=== PATIENT | female | born 1950 | race Caucasian/White ===

== ENCOUNTER → 2016-11-23 | Outpatient (CLI) | payer MEDICARE, MEDICAID ==
[2016-11-23 12:51] LABS: HEMOGLOBIN 14.3 g/dL (11.7-16.4)
[2016-11-23 13:09] LABS: ASPARTATE AMINO TRANSFERASE 11 U/L (15-37); BLOOD UREA NITROGEN 11 mg/dL (7-18)
== END | disposition home or self-care (01) ==
LOC: CFH 11:02
PROVIDERS: ATTEND Nurse Practitioner Family
DX: C54.9 Malignant neoplasm of corpus uteri, unspecified (principal)
CPT/HCPCS: 36415; 80053; 85025

== ENCOUNTER 2018-09-30 08:00 | Outpatient (CLI) | payer MEDICARE, MEDICAID ==
[~2018-09-30 08:00] MED LIST: REGADENOSON 0.4 MG/5 ML SYRINGE ONE
== END 2018-09-30 23:59 | disposition home or self-care (01) ==
LOC: CFH 08:00
PROVIDERS: ATTEND Internal Medicine Cardiovascular Disease
DX: I51.7 Cardiomegaly (principal); I35.8 Other nonrheumatic aortic valve disorders; I49.3 Ventricular premature depolarization
CPT/HCPCS: 78452; 93017; 93306; A9502; J2785

== ENCOUNTER 2018-11-01 13:02 | Inpatient (IN) | payer MEDICARE, MEDICAID ==
[~2018-11-01] VITALS: Ht 147.3 cm; Wt 106.3 kg
--- NOTE | 2018-11-01 13:21 | NUR ---
LUNCH RN: PELON PANG FROM HOME FOR INCREASING ABD PAIN WHICH STARTED LAST NIGHT. PT STATES HAS HAD UMBILICAL HERNIA FOR YEARS BUT LAST NIGHT FELT URGE TO HAVE A BM WAS UNABLE TO, THEN HERNIA BECAME INLARGED AND HARD. VOMITTING X1. IV IN PLACE ON ARRIVAL, 200ML NS, 100 FENT AND 4 ZOFRAN GIVEN IN ROUTE BRINGING PT PAIN DOWN TO 2/10. CONNECTED TO MONITORING, HTN (HASNT TAKEN MORNING MEDS YET), SUP O2 NEEDED TO KEEP SATS WNL AFTER PAIN MEDS. MD TO BEDSIDE FOR ASSESSMENT, REDUCED HERNIA PARTLY. AWAITING ORDERS AT THIS TIME. CALL LIGHT WITHIN REACH
[2018-11-01] MEDS ORDERED: SODIUM CHLORIDE FLUSH 10ML SYR IVF ONE (13:30)
[2018-11-01 13:42] LABS: BASOPHILS # (AUTO) 0.08 x10^3/uL (0-0.1); BASOPHILS % (AUTO) 1 % (0-1); EOSINOPHILS # (AUTO) 0.04 x10^3/uL (0-0.4); EOSINOPHILS % (AUTO) 0 % (1-7); LYMPHOCYTES # (AUTO) 1.19 x10^3/uL (1-3.4); LYMPHOCYTES % (AUTO) 11 % (22-44); MD NO; MEAN CORPUSCULAR HEMOGLOBIN 28.8 pg (27.0-34.8); MEAN CORPUSCULAR HGB CONC 33.7 g/dL (32.4-35.8); MEAN CORPUSCULAR VOLUME 85.4 fL (80-100); MEAN PLATELET VOLUME 8.8 fL (7.4-10.4); MONOCYTES # (AUTO) 0.33 x10^3/uL (0.2-0.8); MONOCYTES % (AUTO) 3 % (2-9); NEUTROPHILS % (AUTO) 84 % (42-75); PLATELET COUNT 368 x10^3/uL (130-400); RED BLOOD COUNT 5.29 x10^6/uL (3.82-5.3)
[2018-11-01 13:52] LABS: ALANINE AMINOTRANSFERASE 13 U/L (12-78); ALBUMIN 3.2 g/dL (3.4-5.0); ANION GAP 3 mmol/L (5-15); CALCIUM 8.2 mg/dL (8.5-10.1); CHLORIDE 105 mmol/L (98-107)
[2018-11-01 13:55] LABS: ALKALINE PHOSPHATASE 65 U/L (45-117); BILIRUBIN,TOTAL 0.4 mg/dL (0.2-1.0); TOTAL PROTEIN 7.7 g/dL (6.4-8.2)
--- NOTE | 2018-11-01 13:56 | NUR ---
CT PENDING: LABS PENDING
[2018-11-01 14:10] LABS: MICROSCOPIC NOT IND
[2018-11-01 14:26] LABS: CULTURE INDICATED? NO
[2018-11-01] MEDS ORDERED: OMNIPAQUE 350 MG/ML, 100ML BOTTLE ONE (14:30)
[2018-11-01] MEDS ORDERED: CA C1TAB42 PO (15:05)
[2018-11-01] MEDS ORDERED: LOVA10TA PO (15:05)
[2018-11-01] MEDS ORDERED: LISI40TA PO (15:05)
[2018-11-01] MEDS ORDERED: METF500T17 PO (15:05)
[2018-11-01] MEDS ORDERED: CHOL500015 PO (15:05)
[2018-11-01] MEDS ORDERED: MAGN400T36 PO (15:05)
[2018-11-01] MEDS ORDERED: ASPI-496 PO (15:05)
[2018-11-01] MEDS ORDERED: DEXTROSE 50%, 50ML SYRINGE IVPush PRN (17:30)
[2018-11-01] MEDS ORDERED: ENALAPRILAT 1.25 MG/ML, 2ML IVPush PRN (17:30)
[2018-11-01] MEDS ORDERED: GLUCAGON 1 MG IM PRN (17:30)
[2018-11-01] MEDS ORDERED: hydrALAzine 20 MG/ML, 1ML IVPush PRN (17:30)
[2018-11-01] MEDS ORDERED: morphine SULFATE 10 MG/ML, 1ML IVPush PRN (17:30)
[2018-11-01] MEDS ORDERED: ACETAMINOPHEN 325 MG TABLET PO PRN (17:30)
[2018-11-01] MEDS ORDERED: PROCHLORPERAZINE 5 MG TABLET PO PRN (17:30)
[2018-11-01] MEDS ORDERED: DEXTROSE 4 GM TAB.CHEW PO PRN (17:30)
[2018-11-01] MEDS ORDERED: HEPARIN 5,000 UNITS/ML, 1ML ONE (17:34)
--- NOTE | 2018-11-01 17:38 | NUR ---
assumed care of pt . meds started and ns started.
[2018-11-01] MEDS: HEPARIN 5,000 UNITS/ML, 1ML SQ SCH (17:42)
[2018-11-01] MEDS: SODIUM CHLORIDE 0.9% 1,000 ML IV SCH (17:51)
[2018-11-01 17:54] LABS: HEMOGLOBIN A1C 9.5 % (4.2-6.3)
[2018-11-01 17:55] LABS: FREE T4 (FREE THYROXINE) 0.85 ng/dL (0.76-1.46); THYROID STIMULATING HORMONE 8.31 mIU/L (0.358-3.740)
--- NOTE | 2018-11-01 17:55 | NUR ---
pt given crackers and diet 7-up.
--- NOTE | 2018-11-01 18:03 | NUR ---
Provided report to LUCIA Hwang. All questions answered. Pt ready to transfer to floor from ED.
[2018-11-01 18:50] VITALS: BP 126/65
[2018-11-01] MEDS ORDERED: levothyroxine (19:04)
[2018-11-01] MEDS: SODIUM CHLORIDE FLUSH 10ML SYR IVF SCH (20:25)
[2018-11-01] MEDS: LOVASTATIN 10 MG TABLET PO SCH (20:25)
[2018-11-01] MEDS: INSULIN LISPRO 100 UNITS/ML, PEN SQ-INSULIN SCH (20:30)
[2018-11-01 20:31] LABS: ALBUMIN 2.9 g/dL (3.4-5.0); ANION GAP 6 mmol/L (5-15); CALCIUM 8.4 mg/dL (8.5-10.1); CHLORIDE 106 mmol/L (98-107); CREATININE 0.87 mg/dL (0.55-1.02)
[2018-11-02 00:10] VITALS: BP 120/56
[2018-11-02] MEDS: SODIUM CHLORIDE 0.9% 1,000 ML IV SCH (00:32)
[2018-11-02] MEDS: GABAPENTIN 300 MG CAPSULE PO PRN ×2 (00:32→23:43)
[2018-11-02] MEDS: HEPARIN 5,000 UNITS/ML, 1ML SQ SCH ×4 (00:33→23:59)
[2018-11-02 05:04] LABS: BASOPHILS # (AUTO) 0.05 x10^3/uL (0-0.1); BASOPHILS % (AUTO) 0 % (0-1); EOSINOPHILS # (AUTO) 0.19 x10^3/uL (0-0.4); EOSINOPHILS % (AUTO) 2 % (1-7); LYMPHOCYTES # (AUTO) 2.79 x10^3/uL (1-3.4); LYMPHOCYTES % (AUTO) 25 % (22-44); MD NO; MEAN CORPUSCULAR HEMOGLOBIN 28.5 pg (27.0-34.8); MEAN CORPUSCULAR HGB CONC 33.1 g/dL (32.4-35.8); MEAN CORPUSCULAR VOLUME 86.2 fL (80-100); MEAN PLATELET VOLUME 9.1 fL (7.4-10.4); MONOCYTES # (AUTO) 0.92 x10^3/uL (0.2-0.8); MONOCYTES % (AUTO) 8 % (2-9); NEUTROPHILS # (AUTO) 7.05 x10^3/uL (1.8-6.8); NEUTROPHILS % (AUTO) 64 % (42-75); PLATELET COUNT 356 x10^3/uL (130-400); RED BLOOD COUNT 4.99 x10^6/uL (3.82-5.3); RED CELL DISTRIBUTION WIDTH 15.4 % (9.6-15.2)
[2018-11-02 05:12] LABS: ALANINE AMINOTRANSFERASE 13 U/L (12-78); ALBUMIN 2.9 g/dL (3.4-5.0); ANION GAP 6 mmol/L (5-15); CALCIUM 8.4 mg/dL (8.5-10.1); CHLORIDE 103 mmol/L (98-107)
[2018-11-02 05:16] LABS: ALKALINE PHOSPHATASE 57 U/L (45-117); BILIRUBIN,TOTAL 0.3 mg/dL (0.2-1.0); CHOL/HDL RATIO 4.4; CHOLESTEROL, TOTAL 182 mg/dL (140-239); HDL CHOL % 23 % (28-40); HDL CHOLESTEROL (DIRECT) 41 mg/dL (40-60); LDL CHOLESTEROL,CALCULATED 75 mg/dL (54-169); LDL/HDL RATIO 1.8 (0.5-3.0); TOTAL PROTEIN 7.2 g/dL (6.4-8.2); TRIGLYCERIDES 330 mg/dL (50-200); VLDL CHOLESTEROL 66 mg/dL (0-25)
[2018-11-02 06:47] VITALS: BP 128/72
[2018-11-02] MEDS: INSULIN LISPRO 100 UNITS/ML, PEN SQ-INSULIN SCH ×4 (08:29→20:02)
[2018-11-02] MEDS: SODIUM CHLORIDE FLUSH 10ML SYR IVF SCH ×2 (09:00→19:55)
[2018-11-02] MEDS: CHOLECALCIFEROL 1,000 UNIT TABLET PO SCH (09:37)
[2018-11-02] MEDS: LISINOPRIL 20 MG TABLET PO SCH (09:37)
[2018-11-02] MEDS: ASPIRIN 81 MG TABLET EC PO SCH (09:38)
[2018-11-02 12:50] VITALS: BP 116/73
[2018-11-02] MEDS ORDERED: SODIUM CHLORIDE 0.9% 1,000 ML IV SCH (17:19)
[2018-11-02 19:35] VITALS: BP 102/60
[2018-11-02] MEDS: LOVASTATIN 10 MG TABLET PO SCH (19:55)
[2018-11-02] MEDS ORDERED: INSULIN GLARGINE 100 UNITS/ML, PEN SQ-INSULIN SCH (21:00)
[2018-11-03 01:18] VITALS: BP 101/59
[2018-11-03] MEDS: GABAPENTIN 300 MG CAPSULE PO PRN (05:00)
[2018-11-03 05:03] LABS: BASOPHILS # (AUTO) 0.05 x10^3/uL (0-0.1); BASOPHILS % (AUTO) 1 % (0-1); EOSINOPHILS # (AUTO) 0.46 x10^3/uL (0-0.4); EOSINOPHILS % (AUTO) 5 % (1-7); LYMPHOCYTES # (AUTO) 3.11 x10^3/uL (1-3.4); LYMPHOCYTES % (AUTO) 32 % (22-44); MD NO; MEAN CORPUSCULAR HEMOGLOBIN 28.6 pg (27.0-34.8); MEAN CORPUSCULAR HGB CONC 33.6 g/dL (32.4-35.8); MEAN CORPUSCULAR VOLUME 85.1 fL (80-100); MONOCYTES # (AUTO) 0.89 x10^3/uL (0.2-0.8); MONOCYTES % (AUTO) 9 % (2-9); NEUTROPHILS # (AUTO) 5.15 x10^3/uL (1.8-6.8); NEUTROPHILS % (AUTO) 53 % (42-75); PLATELET COUNT 332 x10^3/uL (130-400); RED BLOOD COUNT 4.82 x10^6/uL (3.82-5.3); RED CELL DISTRIBUTION WIDTH 15.1 % (9.6-15.2)
[2018-11-03 05:10] LABS: ALBUMIN 2.9 g/dL (3.4-5.0); ANION GAP 6 mmol/L (5-15); CALCIUM 8.1 mg/dL (8.5-10.1); CHLORIDE 104 mmol/L (98-107); CREATININE 0.67 mg/dL (0.55-1.02)
[2018-11-03 06:31] VITALS: BP 123/70
[2018-11-03] MEDS: CHOLECALCIFEROL 1,000 UNIT TABLET PO SCH (07:43)
[2018-11-03] MEDS: INSULIN LISPRO 100 UNITS/ML, PEN SQ-INSULIN SCH (07:43)
[2018-11-03] MEDS: ASPIRIN 81 MG TABLET EC PO SCH (07:43)
[2018-11-03] MEDS: LISINOPRIL 20 MG TABLET PO SCH (07:44)
[2018-11-03] MEDS: SODIUM CHLORIDE FLUSH 10ML SYR IVF SCH (07:44)
[2018-11-03] MEDS ORDERED: INSU100I13 SQ-INSULIN (08:59)
[2018-11-03] MEDS ORDERED: INSU100I11 SQ-INSULIN (08:59)
[2018-11-03] MEDS ORDERED: GABA300C10 PO (08:59)
[2018-11-03] MEDS: HEPARIN 5,000 UNITS/ML, 1ML SQ SCH (09:30)
== END 2018-11-03 11:35 | disposition home health service (06) | DRG 394 ==
LOC: ED 14:23 → EDIP 16:40 → 3NW 18:03 → DCLOUNGE 11-03 11:09
PROVIDERS: ADMIT Internal Medicine; ATTEND Internal Medicine
PROC: 0T9B70Z Drainage of Bladder with Drainage Device, Via Natural or Artificial Opening (ICD-10-PCS; principal; 2018-11-01)
DX: K42.9 Umbilical hernia without obstruction or gangrene (principal); E46 Unspecified protein-calorie malnutrition; Z68.42 Body mass index [BMI] 45.0-49.9, adult; I69.351 Hemiplegia and hemiparesis following cerebral infarction affecting right dominant side; R29.6 Repeated falls; E11.65 Type 2 diabetes mellitus with hyperglycemia; E78.5 Hyperlipidemia, unspecified; I10 Essential (primary) hypertension; D64.9 Anemia, unspecified; I67.1 Cerebral aneurysm, nonruptured; K43.2 Incisional hernia without obstruction or gangrene; R62.7 Adult failure to thrive; Z82.3 Family history of stroke; Z79.82 Long term (current) use of aspirin; Z79.899 Other long term (current) drug therapy; Z90.710 Acquired absence of both cervix and uterus; Z85.42 Personal history of malignant neoplasm of other parts of uterus; Z87.891 Personal history of nicotine dependence
CPT/HCPCS: 36415; 71045; 74177; 80048; 80053; 80061; 81003; 82040; 82962; 83036; 83690; 83735; 84100; 84439; 84443; 85025; 99285; G0378; J1644; Q9967; J1815; J7030

== ENCOUNTER → 2019-01-10 | Outpatient (CLI) | payer MEDICARE, MEDICAID ==
[~2019-01-10] MED LIST changes: +ASPI-496 PO; +CA C1TAB42 PO; +CHOL500015 PO; +GABA300C10 PO; +INSU100I11 SQ-INSULIN; +INSU100I13 SQ-INSULIN; +LISI40TA PO; +LOVA10TA PO; +MAGN400T36 PO; +METF500T17 PO; +OMNIPAQUE 350 MG/ML, 100ML BOTTLE ONE; -REGADENOSON 0.4 MG/5 ML SYRINGE ONE; +levothyroxine
== END | disposition home or self-care (01) ==
LOC: CFH 09:00
PROVIDERS: ATTEND Nurse Practitioner Family
DX: I65.23 Occlusion and stenosis of bilateral carotid arteries (principal)
CPT/HCPCS: 70496; 70498; 82565; Q9967

== ENCOUNTER 2021-01-30 07:55 | Day surgery (SDC) | payer MEDICARE, MEDICAID ==
[~2021-01-30] VITALS: Ht 147.3 cm; Wt 106.0 kg
[~2021-01-30 07:55] MED LIST changes: +ASPI325T17 PO; +ATOR-2 PO; +CLOP75TA PO; +HYDR-3237 PO; +LEVO25TA2 PO; -LISI40TA PO; +LISI40TA9 PO; +METF500T PO; -OMNIPAQUE 350 MG/ML, 100ML BOTTLE ONE; +ROPI1TAB4 PO; +UBID100C41 PO
[2021-01-30] MEDS ORDERED: ZINC220C4 PEG (09:03)
[2021-01-30] MEDS ORDERED: CALC-73 PO (09:03)
[2021-01-30] MEDS ORDERED: ROPI3TAB4 PO (09:03)
[2021-01-30] MEDS ORDERED: MAGN64TA7 PO (09:03)
[2021-01-30] MEDS ORDERED: GLIP5TAB10 PO (09:03)
[2021-01-30] MEDS ORDERED: UBID30CA15 PO (09:03)
[2021-01-30] MEDS ORDERED: LISI40TA9 PO (09:03)
[2021-01-30] MEDS ORDERED: METF850T10 PO (09:03)
[2021-01-30] MEDS ORDERED: ERGO1250 PO (09:03)
[2021-01-30] MEDS ORDERED: ASPI325T17 PO (09:03)
[2021-01-30] MEDS ORDERED: LOVA10TA PO (09:03)
[2021-01-30] MEDS ORDERED: LEVO50TA5 PO (09:03)
[2021-01-30] MEDS ORDERED: HYDR25TA6 PO (09:03)
[2021-01-30] MEDS ORDERED: POTA8CAP20 PO (09:03)
[2021-01-30] MEDS ORDERED: METO50TA82 PO (09:03)
[2021-01-30] MEDS ORDERED: VITA1TAB3 PO (09:03)
[2021-01-30 09:05] VITALS: BP 174/98
[2021-01-30] MEDS ORDERED: LACTATED RINGERS 1,000 ML IV SCH (09:30)
[2021-01-30] MEDS ORDERED: CHLORHEXIDINE 15 ML UDC PO ONE (09:30)
[2021-01-30] MEDS ORDERED: PROPOFOL 50 ML ONE (09:35)
[2021-01-30 09:36] LABS: ALANINE AMINOTRANSFERASE 14 U/L (12-78); ALBUMIN 3.2 g/dL (3.4-5.0); ANION GAP 8 mmol/L (5-15); CALCIUM 8.8 mg/dL (8.5-10.1); CHLORIDE 105 mmol/L (98-107)
[2021-01-30 09:39] LABS: ALKALINE PHOSPHATASE 63 U/L (45-117); BILIRUBIN,TOTAL 0.7 mg/dL (0.2-1.0); CREATININE 0.68 mg/dL (0.55-1.02); TOTAL PROTEIN 8.1 g/dL (6.4-8.2)
[2021-01-30] MEDS ORDERED: hydrALAzine 20 MG/ML, 1ML IV PRN (10:30)
[2021-01-30] MEDS ORDERED: OXYcodone 5 MG/5 ML ORAL.SOL UDC PO PRN (10:30)
[2021-01-30] MEDS ORDERED: FENTANYL PF 100 MCG/2ML IV PRN (10:30)
[2021-01-30] MEDS ORDERED: ONDANSETRON 2MG/ML, 2ML IVPush PRN (10:30)
[2021-01-30] MEDS ORDERED: LABETALOL 5MG/ML, 20ML IV PRN (10:30)
[2021-01-30] MEDS ORDERED: ACETAMINOPHEN 325 MG TABLET PO PRN (10:30)
[2021-01-30] MEDS ORDERED: MEPERIDINE/PF 25MG/0.5ML IVPush PRN (10:30)
[2021-01-30] MEDS ORDERED: GLYCOPYRROLATE 0.2MG/1ML, 5ML ONE (10:37)
== END 2021-01-30 15:30 | disposition home or self-care (01) ==
LOC: OUT 07:55
PROVIDERS: ATTEND Internal Medicine Gastroenterology
DX: Z12.11 Encounter for screening for malignant neoplasm of colon (principal); K64.8 Other hemorrhoids; I10 Essential (primary) hypertension; E11.9 Type 2 diabetes mellitus without complications; E78.5 Hyperlipidemia, unspecified; G47.33 Obstructive sleep apnea (adult) (pediatric); E03.9 Hypothyroidism, unspecified; K21.9 Gastro-esophageal reflux disease without esophagitis; I69.351 Hemiplegia and hemiparesis following cerebral infarction affecting right dominant side; E66.01 Morbid (severe) obesity due to excess calories; Z20.822 Contact with and (suspected) exposure to COVID-19; Z68.42 Body mass index [BMI] 45.0-49.9, adult; Z79.84 Long term (current) use of oral hypoglycemic drugs; Z79.890 Hormone replacement therapy; Z79.899 Other long term (current) drug therapy; Z87.891 Personal history of nicotine dependence; Z83.71 Family history of colonic polyps
CPT/HCPCS: 74280; 80053; 82962; 87635; 93005; G0104; J2704; J7120

== ENCOUNTER 2021-03-26 18:36 | Emergency (ER) | payer MEDICARE, MEDICAID ==
[~2021-03-26] VITALS: Ht 147.3 cm; Wt 111.4 kg
[~2021-03-26 18:36] MED LIST changes: +CALC-73 PO; +ERGO1250 PO; +GLIP5TAB10 PO; +HYDR25TA6 PO; +LEVO50TA5 PO; +MAGN64TA7 PO; +METF850T10 PO; +METO50TA82 PO; +POTA8CAP20 PO; +ROPI3TAB4 PO; +UBID30CA15 PO; +VITA1TAB3 PO; +ZINC220C4 PEG
[2021-03-26 19:27] LABS: BASOPHILS % (AUTO) 2 % (0-1); EOSINOPHILS % (AUTO) 1 % (1-7); LYMPHOCYTES % (AUTO) 14 % (22-44); MEAN CORPUSCULAR HEMOGLOBIN 27.3 pg (27.0-34.8); MEAN CORPUSCULAR HGB CONC 32.3 g/dL (32.4-35.8); MEAN PLATELET VOLUME 8.2 fL (7.4-10.4); MONOCYTES % (AUTO) 9 % (2-9); NEUTROPHILS % (AUTO) 74 % (42-75); PLATELET COUNT 384 x10^3/uL (130-400); RED BLOOD COUNT 5.26 x10^6/uL (3.82-5.3); RED CELL DISTRIBUTION WIDTH 18.2 % (9.6-15.2)
[2021-03-26 19:38] LABS: ALANINE AMINOTRANSFERASE 13 U/L (12-78); ALBUMIN 2.9 g/dL (3.4-5.0); ANION GAP 10 mmol/L (5-15); CALCIUM 9.1 mg/dL (8.5-10.1); CHLORIDE 103 mmol/L (98-107); CREATININE 0.67 mg/dL (0.55-1.02)
--- NOTE | 2021-03-26 19:40 | NUR ---
PER OPERATIVE SUPERVISOR, PT TO U/S AT THIS TIME.
[2021-03-26 19:41] LABS: ALKALINE PHOSPHATASE 54 U/L (45-117); BILIRUBIN,TOTAL 0.7 mg/dL (0.2-1.0); TOTAL PROTEIN 7.6 g/dL (6.4-8.2)
--- NOTE | 2021-03-26 22:27 | NUR ---
PT WHEELED TO ROOM C FAMILY ATT.
[2021-03-26] MEDS ORDERED: CEPHALEXIN 500 MG CAPSULE PO ONE (23:00)
[2021-03-26] MEDS ORDERED: HYDROCORTISONE CRM 2.5%, 20GM TP ONE (23:00)
[2021-03-26] MEDS ORDERED: CEPHALEXIN 500 MG CAPSULE ONE (23:09)
[2021-03-26 23:30] VITALS: BP 163/72
== END 2021-03-27 00:09 | disposition home or self-care (01) ==
LOC: ED 23:00
DX: L25.9 Unspecified contact dermatitis, unspecified cause (principal); L03.115 Cellulitis of right lower limb; I10 Essential (primary) hypertension; E11.9 Type 2 diabetes mellitus without complications; Z86.73 Personal history of transient ischemic attack (TIA), and cerebral infarction without residual deficits; Z90.710 Acquired absence of both cervix and uterus; Z87.891 Personal history of nicotine dependence
CPT/HCPCS: 36415; 80053; 85025; 99284

== ENCOUNTER 2021-04-21 14:03 | Outpatient (CLI) | payer MEDICARE, MEDICAID | END 2021-04-21 23:59 | disposition home or self-care (01) | LOC: WOUND 14:03 | PROVIDERS: ATTEND Internal Medicine | DX: E11.622 Type 2 diabetes mellitus with other skin ulcer (principal); I87.313 Chronic venous hypertension (idiopathic) with ulcer of bilateral lower extremity; L97.811 Non-pressure chronic ulcer of other part of right lower leg limited to breakdown of skin; L97.222 Non-pressure chronic ulcer of left calf with fat layer exposed; I89.0 Lymphedema, not elsewhere classified; L84 Corns and callosities; E78.5 Hyperlipidemia, unspecified; E11.40 Type 2 diabetes mellitus with diabetic neuropathy, unspecified; E03.9 Hypothyroidism, unspecified; E66.01 Morbid (severe) obesity due to excess calories; Z68.42 Body mass index [BMI] 45.0-49.9, adult; Z86.73 Personal history of transient ischemic attack (TIA), and cerebral infarction without residual deficits; Z85.42 Personal history of malignant neoplasm of other parts of uterus; Z90.710 Acquired absence of both cervix and uterus; Z87.891 Personal history of nicotine dependence | CPT/HCPCS: 97597 ==

== ENCOUNTER 2021-05-06 14:11 | Outpatient (CLI) | payer MEDICARE, MEDICAID | END 2021-05-06 23:59 | disposition home or self-care (01) | LOC: WOUND 14:11 | PROVIDERS: ATTEND Internal Medicine | DX: E11.622 Type 2 diabetes mellitus with other skin ulcer (principal); I87.313 Chronic venous hypertension (idiopathic) with ulcer of bilateral lower extremity; L97.811 Non-pressure chronic ulcer of other part of right lower leg limited to breakdown of skin; L97.222 Non-pressure chronic ulcer of left calf with fat layer exposed; I89.0 Lymphedema, not elsewhere classified; L84 Corns and callosities; E78.5 Hyperlipidemia, unspecified; E11.40 Type 2 diabetes mellitus with diabetic neuropathy, unspecified; E03.9 Hypothyroidism, unspecified; E66.01 Morbid (severe) obesity due to excess calories; Z68.42 Body mass index [BMI] 45.0-49.9, adult; Z86.73 Personal history of transient ischemic attack (TIA), and cerebral infarction without residual deficits; Z85.42 Personal history of malignant neoplasm of other parts of uterus; Z90.710 Acquired absence of both cervix and uterus; Z87.891 Personal history of nicotine dependence | CPT/HCPCS: 97597 ==

== ENCOUNTER → 2021-05-13 | Outpatient (CLI) | payer MEDICARE, MEDICAID | END | disposition home or self-care (01) | LOC: WOUND 13:42 | PROVIDERS: ATTEND Nurse Practitioner Family | DX: E11.622 Type 2 diabetes mellitus with other skin ulcer (principal); I87.313 Chronic venous hypertension (idiopathic) with ulcer of bilateral lower extremity; L97.811 Non-pressure chronic ulcer of other part of right lower leg limited to breakdown of skin; L97.222 Non-pressure chronic ulcer of left calf with fat layer exposed; I89.0 Lymphedema, not elsewhere classified; L84 Corns and callosities; E78.5 Hyperlipidemia, unspecified; E11.40 Type 2 diabetes mellitus with diabetic neuropathy, unspecified; E03.9 Hypothyroidism, unspecified; E66.01 Morbid (severe) obesity due to excess calories; Z68.42 Body mass index [BMI] 45.0-49.9, adult; Z86.73 Personal history of transient ischemic attack (TIA), and cerebral infarction without residual deficits; Z85.42 Personal history of malignant neoplasm of other parts of uterus; Z90.710 Acquired absence of both cervix and uterus; Z87.891 Personal history of nicotine dependence | CPT/HCPCS: 97597 ==

== ENCOUNTER → 2021-05-20 | Outpatient (CLI) | payer MEDICARE, MEDICAID | END | disposition home or self-care (01) | LOC: WOUND 14:49 | PROVIDERS: ATTEND Nurse Practitioner Family | DX: E11.622 Type 2 diabetes mellitus with other skin ulcer (principal); I87.313 Chronic venous hypertension (idiopathic) with ulcer of bilateral lower extremity; L97.811 Non-pressure chronic ulcer of other part of right lower leg limited to breakdown of skin; L97.222 Non-pressure chronic ulcer of left calf with fat layer exposed; I89.0 Lymphedema, not elsewhere classified; L84 Corns and callosities; E78.5 Hyperlipidemia, unspecified; E11.40 Type 2 diabetes mellitus with diabetic neuropathy, unspecified; E03.9 Hypothyroidism, unspecified; E66.01 Morbid (severe) obesity due to excess calories; Z68.42 Body mass index [BMI] 45.0-49.9, adult; Z86.73 Personal history of transient ischemic attack (TIA), and cerebral infarction without residual deficits; Z85.42 Personal history of malignant neoplasm of other parts of uterus; Z90.710 Acquired absence of both cervix and uterus; Z87.891 Personal history of nicotine dependence | CPT/HCPCS: 97597 ==

== ENCOUNTER → 2021-05-22 | Outpatient (CLI) | payer MEDICARE, MEDICAID | END | disposition home or self-care (01) | LOC: CVU 12:35 | PROVIDERS: ATTEND Internal Medicine | DX: E11.621 Type 2 diabetes mellitus with foot ulcer (principal); L97.812 Non-pressure chronic ulcer of other part of right lower leg with fat layer exposed ==